=== PATIENT | female | born 1990 | race Caucasian/White ===

== ENCOUNTER → 2017-04-05 | Outpatient (REF) | payer BC ==
[2017-04-05 16:27] LABS: MEAN CORPUSCULAR HEMOGLOBIN 31.1 pg (27.0-33.0); MEAN CORPUSCULAR HGB CONC 33.7 g/dl (32.0-36.5); MEAN CORPUSCULAR VOLUME 92.4 fl (80.0-96.0); PLATELET COUNT, AUTOMATED 300 10^3/uL (150-450); RED CELL DISTRIBUTION WIDTH 11.9 % (11.5-14.5); WHITE BLOOD COUNT 9.6 10^3/uL (4.0-10.0)
[2017-04-05 16:52] LABS: ALBUMIN 4.5 GM/DL (3.2-5.2); ALBUMIN/GLOBULIN RATIO 1.41 (1.00-1.93); ALKALINE PHOSPHATASE 70 U/L (45-117); ALT/SGPT 39 U/L (12-78); ANION GAP 9 MEQ/L (8-16); AST/SGOT 21 U/L (7-37); BILIRUBIN,TOTAL 0.5 MG/DL (0.2-1.0); BLOOD UREA NITROGEN 10 MG/DL (7-18); CALCIUM LEVEL 9.8 MG/DL (8.5-10.1); CARBON DIOXIDE LEVEL 28 MEQ/L (21-32); CHLORIDE LEVEL 103 MEQ/L (98-107); CREATININE FOR GFR 0.72 MG/DL (0.55-1.02); GLOMERULAR FILTRATION RATE > 60.0 (>60); GLUCOSE, FASTING 73 MG/DL (70-105); POTASSIUM SERUM 3.9 MEQ/L (3.5-5.1); SODIUM LEVEL 140 MEQ/L (136-145); TOTAL PROTEIN 7.7 GM/DL (6.4-8.2)
== END ==
LOC: M SFHCPLAZ 14:46
PROVIDERS: ATTEND Nurse Practitioner Adult Health
DX: Z00.00 Encounter for general adult medical examination without abnormal findings (principal)

== ENCOUNTER → 2019-04-30 | Outpatient (REF) | payer BC ==
[2019-04-30 12:03] LABS: HEMOGLOBIN 14.8 g/dl (12.0-15.5); MEAN CORPUSCULAR HEMOGLOBIN 31.8 pg (27.0-33.0); MEAN CORPUSCULAR HGB CONC 33.6 g/dl (32.0-36.5); MEAN CORPUSCULAR VOLUME 94.6 fl (80.0-96.0); PLATELET COUNT, AUTOMATED 256 10^3/uL (150-450); RED BLOOD COUNT 4.65 10^6/uL (4.00-5.40); WHITE BLOOD COUNT 10.1 10^3/uL (4.0-10.0)
[2019-04-30 12:31] LABS: ALBUMIN 4.3 GM/DL (3.2-5.2); ALT/SGPT 49 U/L (12-78); BILIRUBIN,TOTAL 0.7 MG/DL (0.2-1.0); BLOOD UREA NITROGEN 10 MG/DL (7-18); C REACTIVE PROTEIN QUANTITATIV 2.94 MG/DL (0.00-0.30); CALCIUM LEVEL 9.4 MG/DL (8.5-10.1); CARBON DIOXIDE LEVEL 28 MEQ/L (21-32); CHLORIDE LEVEL 104 MEQ/L (98-107); CREATININE FOR GFR 0.86 MG/DL (0.55-1.30); GLOMERULAR FILTRATION RATE > 60.0 (>60); GLUCOSE, FASTING 89 MG/DL (70-100); POTASSIUM SERUM 3.9 MEQ/L (3.5-5.1); SODIUM LEVEL 139 MEQ/L (136-145)
[2019-04-30 12:52] LABS: ERYTHROCYTE SEDIMENTATION RATE 16 mm/hr (0-20)
[2019-05-02 00:06] LABS: ANTI RIBOSOMAL ANTIBODIES <0.2 AI (0.0-0.9); ANTINUCLEAR ANTIBODIES DIRECT Negative (Negative); CYCLIC CITRULLINATED PEPTIDE 7 units (0-19); IgG P18 AB Absent (.); IgG P23 AB Absent (.); IgG P28 AB Absent (.); IgG P30 AB Absent (.); IgG P39 AB Absent (.); IgG P41 AB Absent (.); IgG P45 AB Absent (.); IgG P66 AB Absent (.); IgG P93 AB Absent (.); IgM P23 AB Absent (.); IgM P39 AB Absent (.); IgM P41 AB Absent (.); LYME IgG WB INTERPRETATION Negative (.); LYME IgM WB INTERPRETATION Negative (.)
== END ==
LOC: M SFHCPLAZ 09:05
PROVIDERS: ATTEND Nurse Practitioner Adult Health
DX: Z00.00 Encounter for general adult medical examination without abnormal findings (principal); R53.83 Other fatigue; M25.50 Pain in unspecified joint

== ENCOUNTER → 2020-09-15 | Outpatient (REF) | payer OTHER ==
[2020-09-15 15:28] LABS: HEMATOCRIT 40.4 % (36.0-47.0); HEMOGLOBIN 14.1 g/dl (12.0-15.5); MEAN CORPUSCULAR HEMOGLOBIN 31.3 pg (27.0-33.0); MEAN CORPUSCULAR HGB CONC 34.9 g/dl (32.0-36.5); MEAN CORPUSCULAR VOLUME 89.8 fl (80.0-96.0); PLATELET COUNT, AUTOMATED 326 10^3/uL (150-450)
[2020-09-15 16:37] LABS: HEPATITIS C VIRUS ABY INDEX < 0.0 INDEX (<0.8); HIV 1&2 SCREEN CENTAUR NEGATIVE (NEGATIVE)
== END ==
LOC: M PLALAB 13:44
PROVIDERS: ATTEND Advanced Practice Midwife
DX: Z34.01 Encounter for supervision of normal first pregnancy, first trimester (principal); Z36.89 Encounter for other specified antenatal screening; Z3A.00 Weeks of gestation of pregnancy not specified

== ENCOUNTER → 2020-10-13 | Outpatient (REF) | payer OTHER ==
[2020-10-13 17:56] LABS: ALBUMIN 3.8 GM/DL (3.2-5.2); ALT/SGPT 17 U/L (12-78); BILIRUBIN,TOTAL 0.3 MG/DL (0.2-1.0); BLOOD UREA NITROGEN 6 MG/DL (7-18); CALCIUM LEVEL 9.4 MG/DL (8.5-10.1); CARBON DIOXIDE LEVEL 27 MEQ/L (21-32); CHLORIDE LEVEL 105 MEQ/L (98-107); CREATININE FOR GFR 0.56 MG/DL (0.55-1.30); GLOMERULAR FILTRATION RATE > 60.0 (>60); GLUCOSE, FASTING 94 MG/DL (70-100); POTASSIUM SERUM 3.7 MEQ/L (3.5-5.1); SODIUM LEVEL 138 MEQ/L (136-145)
[2020-10-15 16:15] LABS: CARDIOLIPIN IGA ANTIBODY <9 APL U/mL (0-11); CARDIOLIPIN IGG ANTIBODY <9 GPL U/mL (0-14); CARDIOLIPIN IGM ANTIBODY <9 MPL U/mL (0-12); SSA SJOGRENS A <0.2 AI (0.0-0.9); SSB SJOGRENS B <0.2 AI (0.0-0.9)
== END ==
LOC: M PLALAB 14:53
PROVIDERS: ATTEND Advanced Practice Midwife
DX: Z34.01 Encounter for supervision of normal first pregnancy, first trimester (principal)

== ENCOUNTER → 2020-12-07 | Outpatient (CLI) | payer BC ==
--- NOTE | 2020-12-07 12:41 | REP ---
INDICATION: ANATOMY. COMPARISON: None. TECHNIQUE: Real-time sonographic evaluation of the gravid uterus performed. FINDINGS: Estimated gestational age is20 weeks 6 days, EDC 04/20/2021. Today's measurements indicate appropriate growth. Presentation: Variable Placenta anterior, grade 0, without evidence of placenta previa. heart rate is recorded at 163 beats per minute. Amniotic fluid is subjectively normal. Closed cervical length is measured at 3.8 cm. Biometry chart: BPD: 47 mm, 20 weeks 1 days, 29th percentile. HC: 180 mm, 20 weeks 3 days, 34th percentile AC: 161 mm, 21 weeks 1 days, 56th percentile Femur length: 35 mm, 21 weeks 0 days, 50th percentile HC to AC ratio: 1.12, normal range 1.06-1.24. Estimated weight: 390g, 48th percentile. anatomy: Cranium: Grossly normal Lateral Ventricles/Choroid Plexus: Grossly normal Posterior Fossa/Cerebellum: Grossly normal Nose/lips/profile: Grossly normal Four chamber heart: Grossly normal Right ventricular outflow tract: Grossly normal Left ventricular outflow tract: Grossly normal Left-sided stomach: Grossly normal Kidneys: Grossly normal Bladder: Grossly normal Cord Insertion: Grossly normal 3 vessel cord: Grossly normal Spine: Not well seen due to position. IMPRESSION: Viable single intrauterine gestation as above. <Electronically signed by Butch Davis > 12/07/20 [id number]
== END ==
LOC: M WHC 10:00
PROVIDERS: ATTEND Advanced Practice Midwife
DX: Z34.02 Encounter for supervision of normal first pregnancy, second trimester (principal); Z36.89 Encounter for other specified antenatal screening; Z3A.20 20 weeks gestation of pregnancy

== ENCOUNTER → 2021-01-04 | Outpatient (CLI) | payer BC ==
--- NOTE | 2021-01-04 22:44 | REP ---
INDICATION: F/U ANATOMY COMPARISON: 12/07/2020 TECHNIQUE: Transabdominal obstetrical ultrasound with color Doppler evaluation. FINDINGS: Examination demonstrates a single live intrauterine in breech presentation. motion is identified by technologist. Placenta is noted anterior and grade 1 without evidence for placenta previa or abruption. Amniotic fluid volume is normal. Cervix measures 4.8 cm in length and appears closed.. Selected gestational age: 24 weeks 2 days with JAREN 04/24/2021. Gestational age by current measurements 24 weeks 4 days with JAREN 04/22/2021. FHR equals 132 beats per minute. Estimated weight 732 grams (63rdpercentile). Anatomical assessment demonstrates normal structures including cranium, choroid plexus, cavum, cerebellum/posterior fossa, facial features, lungs, four-chamber heart/ventricular outflow tracts, diaphragm, stomach, cord insertion/three-vessel cord, kidneys/bladder, and extremities. Suboptimal evaluation of the lumbar spine noted due to positioning while the remainder of the cervical and thoracic spine appears relatively normal. IMPRESSION: Continued limited evaluation of the lower spine. Remainder of the anatomical assessment is complete and normal. <Electronically signed by Jakob Morales > 01/04/21 [id number]
== END ==
LOC: M WHC 07:57
PROVIDERS: ATTEND Advanced Practice Midwife
DX: Z34.92 Encounter for supervision of normal pregnancy, unspecified, second trimester (principal); Z3A.24 24 weeks gestation of pregnancy

== ENCOUNTER → 2021-01-28 | Outpatient (CLI) | payer BC ==
--- NOTE | 2021-01-28 14:13 | REP ---
INDICATION: F/U ANATOMY. COMPARISON: January 04, 2021. TECHNIQUE: Transabdominal obstetric sonography. FINDINGS: Scanning through the gravid uterus demonstrates a viable single intrauterine gestation in breech lie. motion is observed and heart rate is recorded at 142 beats per minute. A anterior placenta is seen, grade 1, without evidence of placenta previa. Closed cervical length is measured at cm transabdominally. No extrauterine abnormality is observed. Amniotic fluid is subjectively spine was seen today and felt to be normal. In conjunction with prior study, anatomic survey is felt to be complete.. Biometry chart: BPD 6.8 cm, 27 weeks 3 days Head circumference 27.0 cm, 29 weeks 3 days Head abdominal circumference 23.5 cm, 27 weeks 6 days Femur length 5.4 cm, 28 weeks 4 days Humeral length 4.8 cm, 28 weeks 2 days HC AC ratio normal 1.15 Cephalic index normal 0.68 (0.70-0.86). Estimated weight 1192 g, 2 lb 10 oz, 57th percentile for 27 weeks 5 days IMPRESSION: Viable single intrauterine gestation at 28 weeks 2 days by today's composite sonographic criteria. JAREN by today's sonography April 20, 2021. No complication identified. Expected gestational age estimate based on known JAREN of 24 April 2021 is 27 weeks 5 days. Appropriate interval growth. In conjunction with the prior study, anatomic survey is felt to be complete. <Electronically signed by Doug Peterson > 01/28/21 [id number]
== END ==
LOC: M WHC 12:35
PROVIDERS: ATTEND Advanced Practice Midwife
DX: Z36.2 Encounter for other antenatal screening follow-up (principal); O32.1XX0 Maternal care for breech presentation, not applicable or unspecified; Z3A.27 27 weeks gestation of pregnancy

== ENCOUNTER → 2021-02-08 | Outpatient (CLI) | payer BC, OTHER ==
[2021-02-08 13:39] LABS: HEMATOCRIT 33.6 % (36.0-47.0); HEMOGLOBIN 11.3 g/dl (12.0-15.5); MEAN CORPUSCULAR HEMOGLOBIN 32.2 pg (27.0-33.0); MEAN CORPUSCULAR HGB CONC 33.6 g/dl (32.0-36.5); MEAN CORPUSCULAR VOLUME 95.7 fl (80.0-96.0); PLATELET COUNT, AUTOMATED 226 10^3/uL (150-450); RED BLOOD COUNT 3.51 10^6/uL (4.00-5.40); WHITE BLOOD COUNT 10.6 10^3/uL (4.0-10.0)
== END ==
LOC: M PLALAB 10:01
PROVIDERS: ATTEND Advanced Practice Midwife
DX: Z36.89 Encounter for other specified antenatal screening (principal); Z3A.24 24 weeks gestation of pregnancy

== ENCOUNTER → 2021-03-30 | Outpatient (REF) | payer BC, OTHER | LOC: M SFHCWAGY 09:57 | PROVIDERS: ATTEND Obstetrics & Gynecology | DX: Z36.89 Encounter for other specified antenatal screening (principal); Z3A.00 Weeks of gestation of pregnancy not specified ==

== ENCOUNTER 2021-04-07 15:03 | Outpatient (CLI) | payer BC, OTHER ==
[~2021-04-07] VITALS: Ht 157.5 cm; Wt 70.1 kg
[2021-04-07 15:25] VITALS: BP 132/86
[2021-04-07] MEDS ORDERED: MULTTAB20 PO (15:25)
[2021-04-07] MEDS ORDERED: HOME MED LIST COMPLETE! XX SCH (15:30)
[2021-04-07 16:22] VITALS: BP 127/88
--- NOTE | 2021-04-07 16:25 | REP ---
INDICATION: oligohydrmanios. COMPARISON: Multiple TECHNIQUE: Transabdominal scanning FINDINGS: Multiple ultrasonographic images of the gravid uterus shows a single living intrauterine gestation in the breech presentation. Doppler interrogation of the heart shows a heart rate of 141 beats per minute. The placenta is anterior and not low-lying. The cervix measures 4.7 cm length and is closed. The subjective amniotic fluid volume is decreased. The calculated amniotic fluid index is 6.1 within expected range 7.4 to 24.1. BPD: 9.3 cm 37 weeks 6 days HC: 33.4 cm 38 weeks 2 days AC: 33.0 cm 36 weeks 6 days FL: 7.3 cm 37 weeks 3 days The estimated weight is 3159 g which is at the 63rd percentile for a 37 week 4 day gestational age. IMPRESSION: Single living intrauterine gestation as described above with an estimated gestational age of 37 weeks 3 days via composite criteria and an estimated date of delivery of 04/25/2021 by today's exam. There is evidence of oligohydramnios. <Electronically signed by Rj Garvin > 04/07/21 [id number]
--- NOTE | 2021-04-07 17:14 | IPNPDOC ---
Text Note Date of Service The patient was seen on 04/07/21. NOTE S: 30 yo G1 at 37 4/7 weeks sent from office for USAMA=3.8. Breech by ultrasound. Pt has scheduled for 04/18. O: AVSS NAD Abd: NT, gravid FHT: Cat. I toco: irregular, mild ultrasound: USAMA=6.1 A/P 30 yo G1 at 37 4/7 weeks with borderline amniotic fluid level Encourage rest, fluid intake Fu [id number]/21 VS,Fishbone, I+O VS, Fishbone, I+O Vital Signs Date Time Temp Pulse Resp B/P (MAP) Pulse Ox O2 Delivery O2 Flow Rate FiO2 04/07/21 16:22 115 16 127/88 (101) Room Air 04/07/21 15:25 97.9 NORMA ALVARENGA MD Apr 07, 2021 17:14
[2021-04-11] MEDS ORDERED: IBUP80TA PO (21:06)
[2021-04-11] MEDS ORDERED: OXYC1TAB23 PO (21:06)
== END 2021-04-07 17:11 | disposition home or self-care (01) ==
LOC: M LDO 15:03
PROVIDERS: ATTEND Specialist
DX: O41.93X9 Disorder of amniotic fluid and membranes, unspecified, third trimester, other fetus (principal); O32.1XX9 Maternal care for breech presentation, other fetus; Z3A.37 37 weeks gestation of pregnancy
CPT/HCPCS: 59025; 76816; 76820; G0378; G0463